=== PATIENT | male | born 1980 | race Caucasian/White ===

== ENCOUNTER → 2017-02-06 | Outpatient (CLI) | payer MEDICARE ==
--- NOTE | 2017-02-06 15:27 | REP ---
Clinical: Nephrolithiasis. Technique: Supine views of the abdomen and pelvis. Findings: Multiple bilateral renal calculi are suggested measuring up to 9 mm in the right kidney and 14 mm in left kidney. 4 mm calcification in the left keon pelvis represents phlebolith versus distal ureteral stone. Nonspecific bowel gas pattern. Skeletal structures are intact. Impression: Bilateral intrarenal calculi measuring up to 14 mm. 4 mm left ureteral stone versus pelvic phlebolith. Signed by Kiet Martinez MD 02/06/2017 03:19 P
== END ==
LOC: M SMT 15:04
PROVIDERS: ATTEND Nurse Practitioner Family
DX: N20.0 Calculus of kidney (principal)

== ENCOUNTER 2017-02-17 12:45 | Day surgery (SDC) | payer MEDICARE ==
[2017-02-17] MEDS: LR 1,000 ML IV (13:31)
[2017-02-17] MEDS ORDERED: PROPOFOL 200 MG/20 ML VIAL As Ordered (14:40)
[2017-02-17] MEDS ORDERED: LIDOCAINE 2% INJ 100 MG/5 ML SDV (FOR ANES.) As Ordered (14:40)
[2017-02-17] MEDS ORDERED: MIDAZOLAM INJ 2 MG/2 ML VIAL (J2250) As Ordered (14:41)
[2017-02-17] MEDS ORDERED: fentaNYL 100 MCG/2 ML INJECTION (J3010) As Ordered (14:41)
[2017-02-17] MEDS: GENTAMICIN 100 MG in APPROPRIATE DILUENT 1 EA IV (15:25)
[2017-02-17] MEDS: CONRAY-60 60% 50ML VIAL (Q9961) As Ordered (15:49)
[2017-02-17] MEDS ORDERED: fentaNYL 100 MCG/2 ML INJECTION (J3010) IV (16:30)
[2017-02-17] MEDS ORDERED: LR 1,000 ML IV (16:30)
[2017-02-17] MEDS ORDERED: ONDANSETRON 4MG/2ML VIAL (J2405) IV (16:30)
[2017-02-17] MEDS: PERCOCET 5MG/325MG TAB PO (16:35)
[2017-02-17] MEDS ORDERED: PERCOCET 5MG/325MG TAB PO (16:45)
== END 2017-02-17 18:00 | disposition home or self-care (01) ==
LOC: M SDC 12:45
DX: N20.2 Calculus of kidney with calculus of ureter (principal); R39.198 Other difficulties with micturition; E03.9 Hypothyroidism, unspecified; I10 Essential (primary) hypertension; F43.10 Post-traumatic stress disorder, unspecified; E78.5 Hyperlipidemia, unspecified; G47.33 Obstructive sleep apnea (adult) (pediatric); G40.909 Epilepsy, unspecified, not intractable, without status epilepticus; Q61.3 Polycystic kidney, unspecified; R94.5 Abnormal results of liver function studies; M51.9 Unspecified thoracic, thoracolumbar and lumbosacral intervertebral disc disorder; T88.59XD Other complications of anesthesia, subsequent encounter; R06.83 Snoring; J30.9 Allergic rhinitis, unspecified; F07.81 Postconcussional syndrome; E55.9 Vitamin D deficiency, unspecified; R73.01 Impaired fasting glucose; R51 Headache; I72.0 Aneurysm of carotid artery; Z88.0 Allergy status to penicillin; Z79.899 Other long term (current) drug therapy; Z87.820 Personal history of traumatic brain injury
CPT/HCPCS: 52356